=== PATIENT | female | born 1980 | race Caucasian/White ===

== ENCOUNTER 2019-03-12 02:01 | Inpatient (IN) | payer BC ==
[~2019-03-12] VITALS: Ht 175.3 cm; Wt 61.0 kg
[2019-03-12 02:56] LABS: BASO # 0.1 10^3/uL (0.0-0.2); BASO % 0.5 % (0.0-1.0); EOS % 0.2 % (0.0-3.0); HEMATOCRIT 41.8 % (36.0-47.0); HEMOGLOBIN 14.1 g/dl (12.0-15.5); LYMPH # 1.4 10^3/uL (1.5-4.5); LYMPH % 14.6 % (24.0-44.0); MEAN CORPUSCULAR HEMOGLOBIN 30.1 pg (27.0-33.0); MEAN CORPUSCULAR HGB CONC 33.7 g/dl (32.0-36.5); MEAN CORPUSCULAR VOLUME 89.3 fl (80.0-96.0); MONO # 0.5 10^3/uL (0.0-0.8); MONO % 4.8 % (0.0-5.0); NEUTROPHILS # 7.7 10^3/uL (1.8-7.7); NEUTROPHILS % 79.7 % (36.0-66.0); PLATELET COUNT, AUTOMATED 295 10^3/uL (150-450); RED BLOOD COUNT 4.68 10^6/uL (4.00-5.40); WHITE BLOOD COUNT 9.7 10^3/uL (4.0-10.0)
[2019-03-12 03:17] LABS: ALBUMIN 4.6 GM/DL (3.2-5.2); ALT/SGPT 20 U/L (12-78); AMYLASE 54 U/L (25-115); BILIRUBIN,TOTAL 1.1 MG/DL (0.2-1.0); BLOOD UREA NITROGEN 12 MG/DL (7-18); CALCIUM LEVEL 9.4 MG/DL (8.5-10.1); CARBON DIOXIDE LEVEL 30 MEQ/L (21-32); CHLORIDE LEVEL 105 MEQ/L (98-107); CREATININE FOR GFR 0.85 MG/DL (0.55-1.30); GLOMERULAR FILTRATION RATE > 60.0 (>60); GLUCOSE, FASTING 136 MG/DL (70-100); LIPASE 161 U/L (73-393); POTASSIUM SERUM 4.2 MEQ/L (3.5-5.1); SODIUM LEVEL 139 MEQ/L (136-145); TOTAL PROTEIN 7.7 GM/DL (6.4-8.2)
[2019-03-12 03:35] LABS: HCG, SERUM QUALITATIVE NEGATIVE (NEGATIVE)
[2019-03-12] MEDS ORDERED: NS 1,000 ML IV SCH (03:49)
[2019-03-12] MEDS ORDERED: ONDANSETRON 4MG/2ML VIAL (J2405) IV ONE ×2 (04:00→10:45)
[2019-03-12] MEDS ORDERED: MORPHINE 4 MG/ML 1ML VIAL/SYRINGE (J2270) IV ONE (04:00)
[2019-03-12] MEDS: GASTROGRAFIN SOLUTION 30ML PO SCH ×2 (05:00→05:08)
[2019-03-12] MEDS ORDERED: ISOVUE-370 76% 100ML VIAL (Q9967) As Ordered ONE (05:42)
--- NOTE | 2019-03-12 07:49 | REPVR ---
EXAM: CT Abdomen and Pelvis With Contrast EXAM DATE/TIME: 03/12/2019 3:49 AM CLINICAL HISTORY: 38 years old, female; Vomiting; Abdominal pain; Generalized; Additional info: Gen abd pain, vomiting TECHNIQUE: Imaging protocol: Axial computed tomography images of the abdomen and pelvis with intravenous contrast. Coronal and sagittal reformatted images were created and reviewed. Radiation optimization: All CT scans at this facility use at least one of these dose optimization techniques: automated exposure control; mA and/or kV adjustment per patient size (includes targeted exams where dose is matched to clinical indication); or iterative reconstruction. Contrast material: ISO;Contrast volume: 100 ml;Contrast route: AC; COMPARISON: No relevant prior studies available. FINDINGS: Lungs: Trace left basilar airspace disease. Liver: No focal hepatic mass. Gallbladder and bile ducts: No cholelithiasis or biliary ductal dilatation. Pancreas: No pancreatic mass or ductal dilatation. Spleen: No splenomegaly. 9 mm accessory spleen. Adrenals: Unremarkable adrenals. Kidneys and ureters: Normal renal morphology. No hydronephrosis. Stomach and bowel: Distal ileal small bowel obstruction. Mild gastric wall thickening. Prominent stool. Diverticula, without pericolonic inflammation. Appendix: No acute appendicitis. Intraperitoneal space: Small quantity of free fluid. Vasculature: Normal caliber of the abdominal aorta. Pelvic vascular calcifications. Lymph nodes: No Logically enlarged lymph nodes. Bladder: Normal bladder morphology. Reproductive: Status post hysterectomy. Bones/joints: Levoscoliosis. Soft tissues: Unremarkable. IMPRESSION: 1. Distal ileal small bowel obstruction. 2. Small quantity of free fluid. 3. Additional findings as described above. The aforementioned findings initiated a critical results communication pathway. An addendum will be issued at the time of clincian notification. Electronically signed by: Mor Rogers On 03/12/2019 07:49:46 AM
[2019-03-12] MEDS ORDERED: DOCU100C16 PO (09:05)
[2019-03-12] MEDS ORDERED: MULTCAP PO (09:05)
[2019-03-12] MEDS ORDERED: ONDANSETRON 4MG/2ML VIAL (J2405) IV PRN (11:00)
[2019-03-12] MEDS ORDERED: PERCOCET 5MG/325MG TAB PO PRN ×2 (11:00)
[2019-03-12] MEDS ORDERED: MORPHINE 4 MG/ML 1ML VIAL/SYRINGE (J2270) IV PRN (11:00)
--- NOTE | 2019-03-12 11:11 | HPEPDOC ---
General Surgery H&P Date of Admission Mar 12, 2019 Attending Physician: MATEO ANGUIANO MD History and Physical CHIEF COMPLAINT: abdominal pain HISTORY OF PRESENT ILLNESS: Patient presented herself to the emergency de partment roughly about 2 AM this morning with complaints of crampy generalized lower abdominal discomfort associated with nausea and multiple episodes of vomiting, abdominal distention that started roughly about 5 PM yesterday. The previous abdominal surgery for new vaginal reconstruction when she was 18 years old. 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 Patients reported to be clinically female with ovaries present. Patient reports for prior episodes of bowel obstruction, the last one was about 14 months ago. All were handled nonoperatively without placement of a nasogastric tube according to her with resolution. Last time around she stated hospital for 3 days. She reports normal regular bowel movements but she does take Colace every day to soften up her stools. She denies any ongoing weight loss. Since pain emergency room a nasogastric tube has been placed and she reports improvement of the cramping and as well as abdominal distention, not passing flatus yet. Last bowel movement was yesterday. ALLERGIES: Please see below. HOME MEDICATIONS: Please see below. PAST MEDICAL HISTORY: 1. 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 PAST SURGICAL HISTORY: 1. Construction of dino-vagina using transverse colon 20 years ago via a transverse incision. PERSONAL/SOCIAL HISTORY: Denies smoking, alcohol use, or recreational drug use. REVIEW OF SYSTEMS: GENERAL: Denies chills, fatigue, fever, weight gain and weight loss. HEENT: Denies blurred vision and double vision. Denies ear symptoms. Denies hoarseness. NECK: Denies any neck pain. CARDIOVASCULAR: Denies chest pain and palpitations. MUSCULOSKELETAL: Denies arthralgias, back pain and thrombophlebitis. SKIN: Denies rash. NEUROLOGIC: Denies headache, stroke and transient ischemic attack. PSYCHIATRIC: Denies anxiety and depression. ENDOCRINE: Denies thyroid disease. HEMATOLOGY/ONCOLOGY: Denies any bleeding or clotting disorder. HEART: Denies any chest pains, palpitations, paroxysmal dyspnea, orthopnea. PULMONARY: Denies chronic cough, dyspnea and wheezing. GASTROINTESTINAL: See HPI. GENITOURINARY: Denies dysuria, frequency, hematuria and nocturia. ENDOCRINE: Denies polydipsia, polyphagia, polyuria, heat or cold intolerance. INFECTIOUS: Denies any recent upper respiratory tract infection, UTI, need for use of antibiotics. PHYSICAL EXAMINATION: VITAL SIGNS: Please see below. GENERAL APPEARANCE: Patient seen and uncomfortable secondary to the presence of a nasogastric tube but reports her abdominal discomfort has improved. Awake, alert, oriented. HEENT: Normocephalic, atraumatic. [place] palpebral conjunctivae. Anicteric sc lerae. Lips dry. 18 [place] nasogastric tube in place about 300 ML's of thick bilious fluid in the canister CHEST: No chest wall abnormalities. Normal respiratory motion/effort. NECK: Supple. No thyromegaly. No lymphadenopathies. LUNGS: Lung sounds are clear to auscultation bilaterally. No wheezing appreciated. HEART: No chest wall abnormalities. Heart rate and rhythm are regular with no murmurs. ABDOMEN: Abdomen is mildly distended. I note that a transverse incision that goes from [id number] above her umbilicus from her previous abdominal surgery. No noticeable hernia. Slightly rounded more prominent on the lower half of her abdomen. Minimally tender around the umbilical area without any rebound or guarding. SKIN: Warm and dry. EXTREMITIES: Extremities have no deformities. No edema identified. NEUROLOGICAL: Awake, alert, oriented. ANCILLARIES: . LABORATORY DATA: Please see below. MICROBIOLOGY: Please see below. IMAGING: CT IMPRESSION: 1. Distal ileal small bowel obstruction. 2. Small quantity of free fluid. 3. Additional findings as described above. scan abdomen and pelvis IMPRESSION AND PLAN: small bowel obstruction Patient has had recurrent obstruction the last episode was 14 months ago. All her previous episodes were treated nonoperatively with resolution of her symptoms. A nasogastric tube was in placed with improvement of her symptoms and seems to be decompressing her abdomen well. She has had previous abdominal surgery for reconstruction of a neovagina using part of her transverse colon. Looking at the CT scan it looks like the splenic flexure has been taken down to move the transverse colon to the pelvis. A see dilated loops of bowels in the upper abdomen and decompressed loops of bowels in the pelvis. I'm not familiar with heat technicalities of her surgery but it seems to me that there is a possibility that they may have created a mesenteric defect to move the transverse colon down to increase the possibility of an internal hernia as the cause of her obstruction. Certainly with previous abdominal open surgery, this could just be adhesions especially that this is a pelvic surgery. At this time she seems to be improving and may very well not need surgery for the bowel obstruction this results by itself so I did tell the patient that if she keeps on having bowel obstructions in short interval she may benefit from a laparoscopic exploration to determine the nature of the obstruction and whether there is some predisposing factor like an internal hernia. We will admit her in the hospital, dressed much to keep her comfortable. I encouraged her to ambulate to hallways. We will recheck an x-ray in the morning as well as do serial examinations. She does not seem to have any signs and symptoms of threatened bowel or bowel ischemia, certainly no signs of perforation at this time. Vital Signs Vital Signs Date Time Temp Pulse Resp B/P (MAP) Pulse Ox O2 Delivery O2 Flow Rate FiO2 03/12/19 07:10 98.3 64 20 116/63 (80) 97 Room Air Laboratory Data Labs 24H Laboratory Tests 2 03/12/19 02:49: Immature Granulocyte % (Auto) 0.2, White Blood Count 9.7, Red Blood Count 4.68, Hemoglobin 14.1, Hematocrit 41.8, Mean Corpuscular Volume 89.3, Mean Corpuscular Hemoglobin 30.1, Mean Corpuscular Hemoglobin Concent 33.7, Red Cell Distribution Width 12.3, Platelet Count 295, Neutrophils (%) (Auto) 79.7H, Lymphocytes (%) (Auto) 14.6L, Monocytes (%) (Auto) 4.8, Eosinophils (%) (Auto) 0.2, Basophils (%) (Auto) 0.5, Neutrophils # (Auto) 7.7, Lymphocytes # (Auto) 1.4L, Monocytes # (Auto) 0.5, Eosinophils # (Auto) 0.0, Basophils # (Auto) 0.1, Nucleated Red Blood Cells % (auto) 0.0, Anion Gap 4L, Glomerular Filtration Rate > 60.0, Blood Urea Nitrogen 12, Creatinine 0.85, Sodium Level 139, Potassium Level 4.2, Chloride Level 105, Carbon Dioxide Level 30, Calcium Level 9.4, Aspartate Amino Transf (AST/SGOT) 15, Alanine Aminotransferase (ALT/SGPT) 20, Alkaline Phosphatase 35L, Total Bilirubin 1.1H, Total Protein 7.7, Albumin 4.6, Al bumin/Globulin Ratio 1.48, Amylase Level 54, Lipase 161, Human Chorionic Gonadotropin, Qual NEGATIVE 03/12/19 02:50: Lactic Acid Level 0.9 CBC/BMP Laboratory Tests 03/12/19 02:49 Red Blood Count 4.68, Mean Corpuscular Volume 89.3, Mean Corpuscular Hemoglobin 30.1, Mean Corpuscular Hemoglobin Concent 33.7, Red Cell Distribution Width 12.3, Neutrophils (%) (Auto) 79.7 H, Lymphocytes (%) (Auto) 14.6 L, Monocytes (%) (Auto) 4.8, Eosinophils (%) (Auto) 0.2, Basophils (%) (Auto) 0.5, Neutrophils # (Auto) 7.7, Lymphocytes # (Auto) 1.4 L, Monocytes # (Auto) 0.5, Eosinophils # (Auto) 0.0, Basophils # (Auto) 0.1, Calcium Level 9.4, Aspartate Amino Transf (AST/SGOT) 15, Alanine Aminotransferase (ALT/SGPT) 20, Alkaline Phosphatase 35 L, Total Bilirubin 1.1 H, Total Protein 7.7, Albumin 4.6 Home Medications Scheduled Multivitamin (Multivitamins) 1 Each Capsule, 1 CAP PO DAILY, (Reported) Scheduled PRN Docusate Sodium (Docusate Sodium) 100 Mg Capsule, 100 MG PO BID PRN for CONSTIPATION, (Reported) Allergies Coded Allergies: No Known Allergies (Unverified , 03/12/19) A-FIB/CHADSVASC A-FIB History Current/History of A-Fib/PAF?: No Current PO Anticoag Therapy: No MATEO ANGUIANO MD Mar 12, 2019 09:47
[2019-03-12] MEDS: LR 1,000 ML IV SCH ×2 (11:46→19:00)
[2019-03-12] MEDS: PANTOPRAZOLE 40MG INJ (PROTONIX) (C9113) IV SCH (11:46)
--- NOTE | 2019-03-12 14:04 | REP ---
ACUTE ABDOMINAL SERIES: 03/12/2019. Comparison: CT abdomen and pelvis earlier this date. Clinical history: Followup small bowel obstruction. The patient had been vomiting. NG tube placement. Findings: PA chest. Lung lainez are well inflated and without infiltrate. There is no effusion. Heart, mediastinal and hilar contours are normal. Aorta and airway intact. There is an NG tube coursing through the mediastinum into the left upper quadrant, tip off the field. Bones intact. No free air under the diaphragm. Flat upright abdomen: NG tube courses into the body of the stomach in the left upper quadrant, well beyond the GE junction. IV contrast in the renal collecting system without dilatation. Small amount contrast in bladder. The oral contrast appears almost entirely within the colon. I do not see air fluid levels on the upright view. Bones without acute finding. Impression: 1. NG tube well into the stomach without gastric distension and no air-fluid levels on the upright view. 2. Oral contrast almost entirely within the colon indicating improvement in obstruction. No free air. 3. PA chest negative. Electronically Signed by Gio Dunn MD 03/12/2019 03:07 P
[2019-03-12 14:30] VITALS: BP 120/77
[2019-03-12] MEDS: CEPACOL LOZENGE PO PRN ×3 (15:13→20:04)
[2019-03-12 20:00] VITALS: BP 119/72
[2019-03-12] MEDS: SENOKOT S TAB PO SCH (20:04)
[2019-03-13 04:00] VITALS: BP 102/64
[2019-03-13] MEDS: LR 1,000 ML IV SCH ×2 (04:00→10:58)
[2019-03-13 07:22] LABS: BASO # 0.1 10^3/uL (0.0-0.2); BASO % 0.6 % (0.0-1.0); EOS # 0.1 10^3/uL (0.0-0.50); EOS % 1.1 % (0.0-3.0); HEMATOCRIT 36.2 % (36.0-47.0); LYMPH # 2.4 10^3/uL (1.5-4.5); LYMPH % 29.8 % (24.0-44.0); MEAN CORPUSCULAR HEMOGLOBIN 29.8 pg (27.0-33.0); MEAN CORPUSCULAR HGB CONC 32.9 g/dl (32.0-36.5); MEAN CORPUSCULAR VOLUME 90.5 fl (80.0-96.0); MONO # 0.7 10^3/uL (0.0-0.8); MONO % 9.1 % (0.0-5.0); NEUTROPHILS # 4.7 10^3/uL (1.8-7.7); NEUTROPHILS % 59.1 % (36.0-66.0); PLATELET COUNT, AUTOMATED 234 10^3/uL (150-450); WHITE BLOOD COUNT 7.9 10^3/uL (4.0-10.0)
[2019-03-13 07:31] LABS: HEMOGLOBIN 11.9 g/dl (12.0-15.5)
[2019-03-13 07:40] LABS: BLOOD UREA NITROGEN 10 MG/DL (7-18); CALCIUM LEVEL 8.5 MG/DL (8.5-10.1); CARBON DIOXIDE LEVEL 25 MEQ/L (21-32); CHLORIDE LEVEL 109 MEQ/L (98-107); CREATININE FOR GFR 0.63 MG/DL (0.55-1.30); GLOMERULAR FILTRATION RATE > 60.0 (>60); GLUCOSE, FASTING 83 MG/DL (70-100); POTASSIUM SERUM 3.8 MEQ/L (3.5-5.1); SODIUM LEVEL 141 MEQ/L (136-145)
[2019-03-13 08:00] VITALS: BP 116/67
[2019-03-13] MEDS: PANTOPRAZOLE 40MG INJ (PROTONIX) (C9113) IV SCH (09:08)
[2019-03-13] MEDS: ENOXAPARIN 40 MG/0.4 ML SYRINGE (J1650) SC SCH (09:09)
[2019-03-13] MEDS: SENOKOT S TAB PO SCH ×2 (10:58→20:49)
[2019-03-13] MEDS ORDERED: MOM 30ML SUSPENSION UDC PO ONE (13:30)
[2019-03-13 16:00] VITALS: BP 111/74
--- NOTE | 2019-03-13 16:12 | IPNPDOC ---
Subjective General Date/Time Seen The patient was seen on 03/13/19 at 16:06. Subject Chief Complaint/History The patient is a 38-year-old female admitted with a reason for visit of Small Bowel Obstruction. Patient reports she feels comfortable though she did have some mild cramping right after the nasogastric tube is been removed. She tolerated having the nasogastric tube clamped overnight. She is just starting on clear liquids today. Current Medications Current Medications Current Medications Medications (Trade) Dose Ordered Sig/Sanya Route PRN Reason Start Time Stop Time Status Last Admin Dose Admin Acetaminophen (Tylenol Tab) 650 mg Q4HP PRN PO MILD PAIN or TEMP > 101 03/12/19 11:00 Cetylpyridinium Chloride (Cepacol) 1 noé Q2HP PRN PO SORE THROAT 03/12/19 11:15 03/12/19 20:04 Diatrizoate Meglum/ Diatrizoate Sod (Gastrografin) 10 ml Q30M PO 03/12/19 04:15 03/12/19 04:52 DC 03/12/19 05:08 Enoxaparin Sodium (Lovenox) 40 mg DAILY SC 03/13/19 09:00 03/13/19 09:09 Home Med (Med Rec Complete!) ASDIRECTED XX 03/12/19 09:15 03/12/19 09:15 DC Lactated Ringer's 1,000 ml @ 125 mls/hr Q8H IV 03/12/19 10:57 03/13/19 10:58 Morphine Sulfate (Morphine Sulfate Inj) 4 mg Q4HP PRN IV SEVERE PAIN (PS 8-10) 03/12/19 11:00 03/12/19 11:46 Ondansetron HCl (ZOFRAN INJection) 4 mg Q6HP PRN IV NAUSEA OR VOMITING 03/12/19 11:00 Oxycodone/ Acetaminophen (Percocet 5mg/ 325mg Tablet) 1 tab Q4HP PRN PO MODERATE PAIN (PS 5-7) 03/12/19 11:00 Oxycodone/ Acetaminophen (Percocet 5mg/ 325mg Tablet) 2 tab Q6HP PRN PO SEVERE PAIN (PS 8-10) 03/12/19 11:00 Pantoprazole Sodium (Protonix) 40 mg DAILY IV 03/12/19 09:00 03/13/19 09:08 Senna/Docusate Sodium (Senokot S) 1 tab BID PO 03/12/19 21:00 03/13/19 10:58 Sodium Chloride 1,000 ml @ 150 mls/hr Q6H40M IV 03/12/19 03:49 03/12/19 11:26 DC 03/12/19 03:56 Allergies Coded Allergies: No Known Allergies (Unverified , 03/12/19) Objective Physical Examination Examination GENERAL APPEARANCE: Patient is comfortable. SKIN: Warm and moist. LUNGS: Clear to auscultation bilaterally. No wheezing appreciated. HEART: No chest wall abnormalities. Regular rate and rhythm with no murmurs appreciated. ABDOMEN: Abdomen is flat, soft, and nondistended. Nontender to palpation. EXTREMITIES: No edema. Vital Signs Vital Signs Date Time Temp Pulse Resp B/P (MAP) Pulse Ox O2 Delivery O2 Flow Rate FiO2 03/13/19 08:00 99.5 72 14 116/67 (83) 97 03/12/19 07:10 Room Air I&Os I&O- Last 24 Hours up to 6 AM 03/13/19 06:00 Intake Total 1500 ml Output Total 1030 ml Balance 470 ml Laboratory Data Labs 24H Laboratory Tests 2 03/13/19 06:57: Immature Granulocyte % (Auto) 0.3, White Blood Count 7.9, Red Blood Count 4.00, Hemoglobin 11.9#L, Hematocrit 36.2, Mean Corpuscular Volume 90.5, Mean Corpu scular Hemoglobin 29.8, Mean Corpuscular Hemoglobin Concent 32.9, Red Cell Distribution Width 12.4, Platelet Count 234, Neutrophils (%) (Auto) 59.1, Lymphocytes (%) (Auto) 29.8, Monocytes (%) (Auto) 9.1H, Eosinophils (%) (Auto) 1.1, Basophils (%) (Auto) 0.6, Neutrophils # (Auto) 4.7, Lymphocytes # (Auto) 2.4, Monocytes # (Auto) 0.7, Eosinophils # (Auto) 0.1, Basophils # (Auto) 0.1, Nucleated Red Blood Cells % (auto) 0.0, Anion Gap 7L, Glomerular Filtration Rate > 60.0, Blood Urea Nitrogen 10, Creatinine 0.63, Sodium Level 141, Potassium Level 3.8, Chloride Level 109H, Carbon Dioxide Level 25, Calcium Level 8.5 CBC/BMP Laboratory Tests 03/13/19 06:57 Red Blood Count 4.00, Mean Corpuscular Volume 90.5, Mean Corpuscular Hemoglobin 29.8, Mean Corpuscular Hemoglobin Concent 32.9, Red Cell Distribution Width 12.4, Neutrophils (%) (Auto) 59.1, Lymphocytes (%) (Auto) 29.8, Monocytes (%) (Auto) 9.1 H, Eosinophils (%) (Auto) 1.1, Basophils (%) (Auto) 0.6, Neutrophils # (Auto) 4.7, Lymphocytes # (Auto) 2.4, Monocytes # (Auto) 0.7, Eosinophils # (Auto) 0.1, Basophils # (Auto) 0.1, Calcium Level 8.5 Impression Small bowel obstruction secondary to adhesions She seemed to have opened up and the repeat x-ray later on yesterday shows full decompression of her bowels. She tolerated clamping the nasogastric tube. This has been discontinued. I'll try her on clear liquids and advance the diet that she is able to tolerate this. Discussed with her and her the nature of these of small bowel obstruction. She was previously advised not to eat high- fiber foods that this might cause a bezoar. I'm not sure if this is necessarily true for her. Plan / VTE VTE Prophylaxis Ordered?: Yes MATEO ANGUIANO MD Mar 13, 2019 16:12
[2019-03-13 19:49] VITALS: BP 113/66
[2019-03-13] MEDS: ACETAMINOPHEN TAB 650MG DOSE (2X325MG) PO PRN (19:51)
[2019-03-14 04:00] VITALS: BP 108/69
[2019-03-14 07:03] LABS: BASO % 0.8 % (0.0-1.0); EOS # 0.1 10^3/uL (0.0-0.50); EOS % 1.8 % (0.0-3.0); HEMATOCRIT 34.9 % (36.0-47.0); HEMOGLOBIN 11.3 g/dl (12.0-15.5); LYMPH # 2.2 10^3/uL (1.5-4.5); LYMPH % 43.6 % (24.0-44.0); MEAN CORPUSCULAR HEMOGLOBIN 29.5 pg (27.0-33.0); MEAN CORPUSCULAR HGB CONC 32.4 g/dl (32.0-36.5); MEAN CORPUSCULAR VOLUME 91.1 fl (80.0-96.0); MONO # 0.6 10^3/uL (0.0-0.8); MONO % 11.7 % (0.0-5.0); NEUTROPHILS # 2.2 10^3/uL (1.8-7.7); NEUTROPHILS % 41.9 % (36.0-66.0); PLATELET COUNT, AUTOMATED 231 10^3/uL (150-450); RED BLOOD COUNT 3.83 10^6/uL (4.00-5.40); WHITE BLOOD COUNT 5.1 10^3/uL (4.0-10.0)
[2019-03-14 07:31] LABS: BLOOD UREA NITROGEN 7 MG/DL (7-18); CALCIUM LEVEL 7.9 MG/DL (8.5-10.1); CARBON DIOXIDE LEVEL 28 MEQ/L (21-32); CHLORIDE LEVEL 109 MEQ/L (98-107); CREATININE FOR GFR 0.64 MG/DL (0.55-1.30); GLOMERULAR FILTRATION RATE > 60.0 (>60); GLUCOSE, FASTING 73 MG/DL (70-100); SODIUM LEVEL 142 MEQ/L (136-145)
[2019-03-14 09:00] VITALS: BP 111/65
[2019-03-14] MEDS: ENOXAPARIN 40 MG/0.4 ML SYRINGE (J1650) SC SCH (09:00)
[2019-03-14] MEDS: PANTOPRAZOLE 40MG INJ (PROTONIX) (C9113) IV SCH (09:00)
[2019-03-14] MEDS: SENOKOT S TAB PO SCH (09:00)
[2019-03-14] MEDS: ACETAMINOPHEN TAB 650MG DOSE (2X325MG) PO PRN (09:02)
--- NOTE | 2019-03-14 10:39 | DS.PDOC ---
Discharge Summary General Date of Admission Mar 12, 2019 at 10:57 Date of Discharge 2018 Primary Care Physician: MATEO ANGUIANO MD Discharge Summary PROCEDURES PERFORMED DURING STAY: [None]. ADMITTING DIAGNOSES: 1. small bowel from adhesions DISCHARGE DIAGNOSES: 1. small bowel from adhesions resolved. COMPLICATIONS/CHIEF COMPLAINT: Small Bowel Obstruction. HISTORY OF PRESENT ILLNESS: .Patient presented herself to the emergency department roughly about 2 AM this morning with complaints of crampy generalized lower abdominal discomfort associated with nausea and multiple episodes of vomiting, abdominal distention that started roughly about 5 PM yesterday. The previous abdominal surgery for new vaginal reconstruction when she was 18 years old. 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 Patients reported to be clinically female with ovaries present. Patient reports for prior episodes of bowel obstruction, the last one was about 14 months ago. All were handled nonoperatively without placement of a nasogastric tube according to her with resolution. Last time around she stated hospital for 3 days. She reports normal regular bowel movements but she does take Colace every day to soften up her stools. She denies any ongoing weight loss. Since pain emergency room a nasogastric tube has been placed and she reports improvement of the cramping and as well as abdominal distention, not passing flatus yet. Last bowel movement was yesterday. HOSPITAL COURSE: NGT was placed in the ER after diagnosis of bowel obstruction made with patient reporting relief of the abdominal cramping, nausea. Repeat Xray later that day shows no further evidence of SBO. Her NGT was clamped overnight which she tolerated. This was discontinued the following day and she was started on oral diet, liquids first then advanced to solids. She did have bms later on that day. Patient reports resolution of her symptoms on day of discharge DISCHARGE MEDICATIONS: Please see below. ALLERGIES: Please see below. PHYSICAL EXAMINATION ON DISCHARGE: VITAL SIGNS: Please see below. GENERAL: HEENT: NECK: CARDIOVASCULAR EXAMINATION: RESPIRATORY EXAMINATION: ABDOMINAL EXAMINATION: flat, soft, nondistended, nontender EXTREMITIES: SKIN: NEUROLOGICAL EXAMINATION: PSYCHIATRIC EXAMINATION: LABORATORY DATA: Please see below. IMAGING: PROGNOSIS: ACTIVITY: [As tolerated]. DIET: We discussed nature of sbo. She was told to avoid fibrous foods. My take on this is that if she does not have any fixed obstructions then she should be able to tolerate fibrous foods. DISCHARGE PLAN: D/C home, follow up prn DISPOSITION: . DISCHARGE INSTRUCTIONS: 1. . ITEMS TO FOLLOWUP ON ON OUTPATIENT: 1. . DISCHARGE CONDITION: Stable. TIME SPENT ON DISCHARGE: Greater than 30 minutes. Vital Signs/I&Os Vital Signs Date Time Temp Pulse Resp B/P (MAP) Pulse Ox O2 Delivery O2 Flow Rate FiO2 03/14/19 04:00 98.2 68 16 108/69 (82) 99 03/12/19 07:10 Room Air I&O- Last 24 Hours up to 6 AM 03/14/19 06:00 Intake Total 2655 ml Output Total 500 ml Balance 2155 ml Laboratory Data Labs 24H Laboratory Tests 2 03/14/19 06:19: Immature Granulocyte % (Auto) 0.2, White Blood Count 5.1, Red Blood Count 3.83L, Hemoglobin 11.3L, Hematocrit 34.9L, Mean Corpuscular Volume 91.1, Mean Corpuscular Hemoglobin 29.5, Mean Corpuscular Hemoglobin Concent 32.4, Red Cell Distribution Width 12.4, Platelet Count 231, Neutrophils (%) (Auto) 41.9, Lymphocytes (%) (Auto) 43.6, Monocytes (%) (Auto) 11.7H, Eosinophils (%) (Auto) 1.8, Basophils (%) (Auto) 0.8, Neutrophils # (Auto) 2.2, Lymphocytes # (Auto) 2.2, Monocytes # (Auto) 0.6, Eosinophils # (Auto) 0.1, Basophils # (Auto) 0.0, Nucleated Red Blood Cells % (auto) 0.0, Anion Gap 5L, Glomerular Filtration Rate > 60.0, Blood Urea Nitrogen 7, Creatinine 0.64, Sodium Level 142, Potassium Level 4.0, Chloride Level 109H, Carbon Dioxide Level 28, Calcium Level 7.9L CBC/BMP Laboratory Tests 03/14/19 06:19 Red Blood Count 3.83 L, Mean Corpuscular Volume 91.1, Mean Corpuscular Hemoglobin 29.5, Mean Corpuscular Hemoglobin Concent 32.4, Red Cell Distribution Width 12.4, Neutrophils (%) (Auto) 41.9, Lymphocytes (%) (Auto) 43.6, Monocytes (%) (Auto) 11.7 H, Eosinophils (%) (Auto) 1.8, Basophils (%) (Auto) 0.8, Neutrophils # (Auto) 2.2, Lymphocytes # (Auto) 2.2, Monocytes # (Auto) 0.6, Eosinophils # (Auto) 0.1, Basophils # (Auto) 0.0, Calcium Level 7.9 L Discharge Medications Scheduled Multivitamin (Multivitamins) 1 Each Capsule, 1 CAP PO DAILY, (Reported) Scheduled PRN Docusate Sodium (Docusate Sodium) 100 Mg Capsule, 100 MG PO BID PRN for CONSTIPATION, (Reported) Allergies Coded Allergies: No Known Allergies (Unverified , 03/12/19) MATEO ANGUIANO MD Mar 14, 2019 10:39
== END 2019-03-14 11:05 | disposition home or self-care (01) | DRG 247 ==
LOC: M ED 02:01 → M ED INP 10:57 → M PED 14:27
PROVIDERS: ADMIT Surgery; ATTEND Surgery
DX: K56.609 Unspecified intestinal obstruction, unspecified as to partial versus complete obstruction (principal)

== ENCOUNTER → 2019-12-16 | Outpatient (CLI) | payer BC ==
[~2019-12-16] MED LIST: DOCU100C16 PO; MULTCAP PO
--- NOTE | 2019-12-16 08:41 | REPPI ---
Chest x-ray: Two views. History: Anesthesia of skin . Comparison study: Comparison chest x-ray March 12, 2019 . Findings: The lungs are well inflated and free of infiltrate. The pleural angles are sharp. The heart size is normal. Pulmonary vasculature is not increased. No significant bony abnormality is seen. Impression: Negative chest x-ray. Electronically Signed by Alan Fox MD 12/16/2019 08:33 A
--- NOTE | 2019-12-16 08:53 | REPPI ---
CERVICAL SPINE SERIES: Seven views. HISTORY: Anesthesia of the skin. FINDINGS: Lateral views done in flexion/extension and neutral position show preserved vertebral body heights. Alignment is normal. Disc spaces are maintained. No subluxation or instability. Prevertebral soft tissues are unremarkable. Bilateral oblique views demonstrate intact neural foramina bilaterally at each cervical level and normally aligned facets. AP and open mouth odontoid views show no abnormality. IMPRESSION: Negative radiographs of the cervical spine. Electronically Signed by Alan Fox MD 12/16/2019 10:12 A
== END ==
LOC: M PLAIMG 08:04
PROVIDERS: ATTEND Obstetrics & Gynecology
DX: R20.0 Anesthesia of skin (principal)